=== PATIENT | female | born 1970 | race Caucasian/White ===

== ENCOUNTER 2019-02-15 06:23 | Day surgery (SDC) | payer OTHER ==
[2019-01-31 11:27] VITALS: BMI 38.7
[2019-02-15] VITALS (15 sets, daily range): BP systolic 100–135; BP diastolic 54–81; PULSE 78–108; RESP 12–24; Ht 157.5 cm; Wt 95.6 kg
[~2019-02-15] VITALS: Ht 157.5 cm; Wt 95.6 kg
[~2019-02-15 06:23] MED LIST: CIPROFLOXACIN 400 MG in D5W 200 ML IVPB SCH
[2019-02-15] MEDS ORDERED: LACTATED RINGER'S 1,000 ML IV SCH (07:30)
--- NOTE | 2019-02-15 08:22 | PREAC ---
Date/Time of Note Date/Time of Note DATE: 02/15/19 TIME: 08:20 Anesthesia Eval and Record Evaluation Time Pre-Procedure Interview DATE: 02/15/19 TIME: 08:20 Age 48 Sex female NPO: 8 hrs Preoperative diagnosis kidney stones Planned procedure RIGHT ESWL Past Medical History Past Medical History: Includes Cardio: Dyslipidemia GI: Obesity (bmi 38) Surgery & Anesthesia Issues No known issue Meds Anticoagulation: No Beta Ankur within 24 hr: No Reason Beta Ankur not given: Pt. not on B-Ankur No Active Prescriptions or Reported Meds Current Medications Ciprofloxacin/ Dextrose 200 ml @ 200 mls/hr PREOP IVPB ; Start 02/15/19 at 06: 00; Stop 02/15/19 at 17:00 Lactated Ringer's 1,000 ml @ 30 mls/hr Q24H IV Last administered on 02/15/19at 07:21; Admin Dose 30 MLS/HR; Start 02/15/19 at 07:30 Meds reviewed: Yes Allergies Coded Allergies: No Known Allergies (Verified Allergy, Unknown, 02/15/19) Allergies Reviewed: Yes Labs/Studies Labs Reviewed: Reviewed by anesthesiologist test: Negative Studies: ECG, CXR Pre-procedure Exam Last vitals Vital Signs Date Temp Pulse Resp B/P (MAP) Pulse Ox O2 O2 Flow FiO2 Time Delivery Rate 02/15/19 97.5 78 16 126/78 98 07:27 (94) Airway: Adequate mouth opening, Adequate thyromental dist Mallampati: Mallampati II Teeth: Normal Lung: Normal Heart: Normal ASA Physical Status ASA physical status: 2 Emergency: None Planned Anesthetic General/MAC: ETT Planned Pain Management Parenteral pain med, Local by surgeon Pre-operative Attestations Prior to commencing anesthesia and surgery, the patient was re-evaluated, there was verification of: *The patient's identity *The results of appropriate recent lab work and preoperative vital signs *The above evaluation not changing prior to induction *Anesthetic plan, risk benefits, alternative and complications discussed with patient/family; questions answered; patient/family understands, accepts and wishes to proceed. LACEY STODDARD Feb 15, 2019 08:22
[2019-02-15] MEDS ORDERED: FENTAnyl 50 MCG/ML VIAL ONE (08:23)
[2019-02-15] MEDS ORDERED: PROPOFOL 20 ML ONE (08:23)
[2019-02-15] MEDS ORDERED: ROCURONIUM 50 MG INJ ONE (08:23)
[2019-02-15] MEDS ORDERED: LIDOCAINE 2% (SDV) 5 ML INJ ONE (08:23)
--- NOTE | 2019-02-15 09:03 | HPN ---
Date/Time of Note Date/Time of Note DATE: 02/15/19 TIME: 09:03 Interval H&P Admission Note Pt. seen H&P reviewed: No system changes YARITZA STEPHENS Feb 15, 2019 09:03
[2019-02-15] MEDS ORDERED: CIPROFLOXACIN 400MG/D5W 200 ML ONE (09:18)
[2019-02-15] MEDS ORDERED: ONDANSETRON 4 MG INJ ONE (09:41)
[2019-02-15] MEDS ORDERED: DEXAMETHASONE 4 MG/ML 5 ML INJ ONE (09:41)
[2019-02-15] MEDS ORDERED: SUGAMMADEX SODIUM 200 MG/2 ML VIAL IV ONE (09:42)
[2019-02-15] MEDS ORDERED: OXYCODONE/ACETAMINOPHEN (5/325) TAB PO PRN ×2 (10:00)
[2019-02-15] MEDS ORDERED: MEPERIDINE 25 MG INJ IV PRN (10:00)
[2019-02-15] MEDS ORDERED: LABETALOL HCL 20MG INJ IV PRN (10:00)
[2019-02-15] MEDS ORDERED: ONDANSETRON 4 MG INJ IV PRN (10:00)
[2019-02-15] MEDS ORDERED: hydrALAzine 20 MG INJ IV PRN (10:00)
[2019-02-15] MEDS ORDERED: FENTAnyl 50 MCG/ML VIAL IV PRN ×3 (10:00)
[2019-02-15] MEDS ORDERED: IOHEXOL 300MG/ML 30 ML BTL ONE (10:18)
--- NOTE | 2019-02-15 10:39 | OPR ---
Date/Time of Note Date/Time of Note DATE: 02/15/19 TIME: 10:37 Operative Report Procedure Date: Feb 15, 2019 Preoperative Diagnosis right kidney stone Postoperative Diagnosis same Operation/Procedure Performed cytso, right grp, insertion right ureteral stent, right eswl Surgeon dasha Classifier none Anesthesia Type: general Estimated Blood Loss: none Transfusion none Specimen none Grafts/Implants none Tubes/Drains 24 cm 4.8 f stent Complications none Pt Condition Post Procedure: stable Disposition: PACU Indications stone Procedure Description dict [id number] YARITZA STEPHENS Feb 15, 2019 10:39
--- NOTE | 2019-02-15 10:41 | PDOCDIS ---
Discharge Instructions DIAGNOSIS Discharge Diagnosis Kidney stone CONDITION Zeyad Patient Condition: Coral Good HOME CARE INSTRUCTIONS: Zeyda Diet Instructions: Coral Regular ACTIVITY: Zeyad Activity Restrictions: Coral Slowly Increase Activity Zeyad Bathing Restrictions: Coral Shower FOLLOW UP/APPOINTMENTS Follow-up Plan obtain x ray, then follow up in office for removal of stent Stent must be removed in less than 3 m to avoid complications Suggest promp removal of stent REFERRALS Zeyad Referring Provider: YARITZA Elizondo EVAN Feb 15, 2019 10:41
--- NOTE | 2019-02-15 11:16 | OPR ---
DATE OF OPERATION: PREOPERATIVE DIAGNOSIS: Right renal calculi. POSTOPERATIVE DIAGNOSIS: A 7 mm right mid pole renal calculi. PROCEDURE: Cystoscopy, right retrograde pyelogram, insertion right ureteral stent, right extracorpor eal shock wave lithotripsy. SURGEON: Frankie Lopez MD. ANESTHESIA: General. SPECIMENS: None. DESCRIPTION OF PROCEDURE: The patient was brought to the operating room and placed on the [employer] [id number] SLX lithotripter for right extracorporeal shockwave lithotripsy. A timeout was undertaken. Ap propriate pressure points were padded. She received preoperative antibiotic therapy. A KUB with obl iques demonstrated normal bowel gas pattern, normal bony structures and a 7 x 7 mm stone overlying th e mid pole of the right kidney. The stone burden was placed in the appropriate focal point in AP and lateral projection, which allowed for right extracorporeal shockwave lithotripsy with initial energy setting of 1, which was progressively increased to 7 at 200 shocks. A 2-minute pause was undertaken intermittently. The patient was repositioned to keep the stone burden in the appropriate focal poin t at a total of 2500 shocks. Excellent fragmentation was noted and no further stone burden could be appreciated. The patient was repositioned in the lithotripter for insertion of a right ureteral sten t. Rigid cystoscopy was undertaken with a 12-degree and 30-degree angle lens. No abnormalities of t he urethra or bladder could be appreciated. Bladder was inspected in a systematic fashion. No forei gn body, bladder stone or tumor was appreciated. Gross hematuria was appreciated from the right uret eral orifice. A 5-Ghanaian open-ended catheter was placed up to the level of the renal pelvis, which t he retrograde pyelogram demonstrated hydroureteronephrosis with dilation of the collecting system. O verlying the open end of the catheter, a wire was placed into the renal pelvis, which allowed for a 2 4 cm 4.8-Ghanaian double-J ureteral stent to be inserted with the proximal aspect coiling within the re nal pelvis and the distal aspect coiling within the bladder. Attached to the distal end was a tapere d string. Proper pursestring position was confirmed with direct vision fluoroscopy and a KUB. Her b ladder was emptied and she was transferred to recovery room in stable condition. She will be discharg ed home later today on [place] one tab p.o. q.6 hour p.r.n., dispense #[id number], no refill. A KUB with obliques will be obtained in 2 weeks' time and then she will follow up in the office for hopeful cys toscopy, and stent removal. The importance of timely removal of the stent, less than 3 months to eleuterio id complications and the importance of following up as suggested have been stressed on multiple occas ions. All questions have been answered. Dictated By: FRANKIE PELAYO/ANA Conf#: [id number] DID#: [id number]
--- NOTE | 2019-02-15 13:14 | PAC ---
Date/Time of Note Date/Time of Note DATE: 02/15/19 TIME: 13:14 Post-Anesthesia Notes Post-Anesthesia Note Last documented vital signs Vital Signs Date Temp Pulse Resp B/P (MAP) Pulse Ox O2 O2 Flow FiO2 Time Delivery Rate 02/15/19 97.2 92 18 129/67 96 Room Air 11:38 (87) 02/15/19 8.0 10:38 Activity: WNL Respiratory function: WNL Cardiovascular function: WNL Mental status: Baseline Pain reasonably controlled: Yes Hydration appropriate: Yes Nausea/Vomiting absent: Yes LACEY STODDARD Feb 15, 2019 13:14
== END 2019-02-15 12:53 | disposition home or self-care (01) ==
LOC: SDS 06:23
PROVIDERS: ATTEND Urology
DX: N20.0 Calculus of kidney (principal); E78.5 Hyperlipidemia, unspecified
CPT/HCPCS: 52356; 84703; C2617; J0744; J1100; J2405; J3010; Q9967; Z7512; Z7610